=== PATIENT | male | born 1980 | race Caucasian/White ===

== ENCOUNTER 2016-10-20 03:58 | Emergency (ER) | payer OTHER ==
[2016-10-20 04:17] VITALS: BP 132/85; PULSE 74; TEMP 98.2; BMI 27.3
[2016-10-20] MEDS ORDERED: IBUPROFEN 400 MG TABLET (FP) PO ONE ×2 (04:29→05:01)
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
== END 2016-10-20 05:26 | disposition home or self-care (01) ==
LOC: JER 03:58 → SUPCPDRO 03:58 → JER 05:26
DX: S69.82XA Other specified injuries of left wrist, hand and finger(s), initial encounter (principal); Y35.811A Legal intervention involving manhandling, law enforcement official injured, initial encounter; W17.89XA Other fall from one level to another, initial encounter; Y92.59 Other trade areas as the place of occurrence of the external cause; Y99.0 Civilian activity done for income or pay
CPT/HCPCS: 73130-TC-LT; 99282-25

== ENCOUNTER 2017-10-02 02:25 | Emergency (ER) | payer OTHER ==
[2017-10-02] MEDS ORDERED: IBUPROFEN 400 MG TABLET (FP) PO ONE ×2 (03:02→03:20)
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
[2017-10-02 03:04] VITALS: BP 141/101; PULSE 85; TEMP 98.6; BMI 28.0
== END 2017-10-02 03:59 | disposition home or self-care (01) ==
LOC: JER 02:25
DX: S69.91XA Unspecified injury of right wrist, hand and finger(s), initial encounter (principal); S63.91XA Sprain of unspecified part of right wrist and hand, initial encounter; S63.501A Unspecified sprain of right wrist, initial encounter; Y35.891A Legal intervention involving other specified means, law enforcement official injured, initial encounter; Y93.89 Activity, other specified; Y92.9 Unspecified place or not applicable
CPT/HCPCS: 73110-TC-RT-FY; 73130-TC-RT-FY; 99281-25

== ENCOUNTER 2017-12-29 05:56 | Emergency (ER) | payer OTHER ==
[2017-12-29 06:37] VITALS: BP 141/98; PULSE 84; TEMP 98.1; BMI 28.0
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
[2017-12-29] MEDS ORDERED: HIV POST EXPOSURE PROPHYLAXIS KIT NR ONE (07:11)
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
[2017-12-30 14:13] LABS: HBSAG SCREEN Negative (Negative); HBsAG SCREEN Negative (Negative); HEP B CORE AB, TOT Negative (Negative); HEPATITIS B CORE ANTIBODY Negative (Negative)
== END 2017-12-29 08:35 | disposition home or self-care (01) ==
LOC: JER 05:56 → SUPCPDRO 05:56 → JER 08:35
DX: Z77.21 Contact with and (suspected) exposure to potentially hazardous body fluids (principal); Y35.891A Legal intervention involving other specified means, law enforcement official injured, initial encounter; Y93.89 Activity, other specified; Y92.89 Other specified places as the place of occurrence of the external cause; Y99.0 Civilian activity done for income or pay
CPT/HCPCS: 36415; 86704; 86706; 86708; 87340; 87350; 87389; 99281-25

== ENCOUNTER 2018-12-17 09:48 | Emergency (ER) | payer OTHER ==
[2018-12-17 10:04] VITALS: BP 165/93; PULSE 80; TEMP 98.2; BMI 28.8
[2018-12-17] MEDS ORDERED: TETANUS AND DIPHTHERIA TOXOID 0.5 ML DISP.SYRIN IM ONE (11:22)
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
== END 2018-12-17 11:37 | disposition home or self-care (01) ==
LOC: JERFT 09:48 → JER 09:48 → JERFT 11:37
DX: S61.531A Puncture wound without foreign body of right wrist, initial encounter (principal); S60.511A Abrasion of right hand, initial encounter; S60.512A Abrasion of left hand, initial encounter; S00.81XA Abrasion of other part of head, initial encounter; W18.39XA Other fall on same level, initial encounter; Y93.89 Activity, other specified; Y92.89 Other specified places as the place of occurrence of the external cause; Y99.0 Civilian activity done for income or pay; Y35.891A Legal intervention involving other specified means, law enforcement official injured, initial encounter
CPT/HCPCS: 99281-25

== ENCOUNTER 2023-08-13 22:32 | Emergency (ER) | payer OTHER ==
[2023-08-13 22:43] VITALS: BP 136/90; PULSE 95; RESP 16; TEMP 99.4; BMI 28.8
[2023-08-13] MEDS ORDERED: IBUPROFEN 600 MG TABLET (FP) PO ONE ×2 (22:47)
== END 2023-08-13 23:40 | disposition home or self-care (01) ==
LOC: FER 22:32
PROC: 2W3GX1Z Immobilization of Right Thumb using Splint (ICD-10-PCS; principal; 2023-08-13)
DX: S63.641A Sprain of metacarpophalangeal joint of right thumb, initial encounter (principal); M25.531 Pain in right wrist; M79.644 Pain in right finger(s); W01.0XXA Fall on same level from slipping, tripping and stumbling without subsequent striking against object, initial encounter; Y93.02 Activity, running
CPT/HCPCS: 73110-TC-RT-FY; 73130-TC-RT-FY; 99283-25